=== PATIENT | male | born 1995 | race Caucasian/White ===

== ENCOUNTER 2018-06-03 10:42 | Outpatient (CLI) | payer BC ==
[2018-06-03] MEDS ORDERED: Iopamidol 370 76% 100 ML VIAL ONE (12:30)
--- NOTE | 2018-06-03 14:22 | CT ---
CT FACE WITH CONTRAST: CT PARANASAL SINUSES WITH CONTRAST: INDICATIONS: Right-sided facial mass. FINDINGS: There is a tubular hypodensity traversing the right buccal space, which overlies the right side muscl es of mastication and traverses along the expected confines of the ride Shady duct. There is perip heral wall thickening and hyperdensity, which suggests enhancement of the salivary duct. No discrete , radiopaque calculus to confirm an obstructing ductal stone. There is soft tissue prominence at its anterior aspect, which is the most dilated extent, measuring 13 mm in diameter. An underlying mass, therefore, is not excluded as the source for obstruction. There is a slight asymmetric prominence o f the hilum of the right parotid gland. No intraparotid mass is discretely visualized. The salivary glands are unremarkable. The aerodigestive tract is free from mass effect. Evaluation of the paran kelvin sinuses reveals no acute fluid level. No otomastoid effusion. IMPRESSION: Tubular hypodensity with wall prominence and presumed enhancement, favoring abnormal dilatation of ri ght side Shady duct. No obstructing radiopaque calculus is seen. Given abutment of the tubular st ructure with soft tissues at its anteromedial course, the possibility of an underlying soft tissue le armin cannot be excluded. POS: [place]
== END 2018-06-03 10:43 | disposition home or self-care (01) ==
LOC: SCSCT 10:42
PROVIDERS: ATTEND Otolaryngology Otolaryngic Allergy
DX: R22.0 Localized swelling, mass and lump, head (principal)